=== PATIENT | male | born 2000 | race Hispanic/Latino ===

== ENCOUNTER 2020-04-06 15:42 | Inpatient (IN) | payer OTHER ==
[2020-04-06] MEDS ORDERED: EPINEPHrine 1 MG/10 ML Abboject SYRINGE ONE (15:48)
[2020-04-06] MEDS ORDERED: Sodium Bicarb 50 MEQ/50 ML Abboject 8.4% SYRINGE ONE ×4 (15:51→16:25)
[2020-04-06] MEDS ORDERED: Sodium Bicarb 50 MEQ/50 ML VIAL ONE (15:52)
[2020-04-06 15:58] LABS: Hemoglobin 14.2 g/dL (14.0-18.0); Mean Corpuscular HGB CONC 32.4 g/dL (32.0-36.0); Mean Corpuscular Hemoglobin 31.9 pg (27.0-31.0); Mean Corpuscular Volume 98.3 fL (78.0-98.0); Mean Platelet Volume 7.9 fL (7.4-10.4); Platelet Count 232 thou/uL (130-400); RBC Distribution Width 11.3 % (11.5-14.5); Red Blood Cell (RBC) Count 4.45 mill/uL (4.70-6.10)
[2020-04-06] MEDS ORDERED: Calcium Chloride 1 GM/10 ML Abboject SYRINGE ONE ×2 (16:01→16:21)
[2020-04-06 16:03] LABS: INR-International Normal Ratio 1.7; Prothrombin Time 20.8 sec (12.0-14.7)
[2020-04-06 16:04] LABS: PTT 78.7 sec (22.9-36.1)
[2020-04-06 16:05] LABS: Actual Bicarbonate (HCO3a) 7.3 mEq/L (22-28); Base Excess (BEa) -27.5 mEq/L (-2.0 to +3.0); CO2 Tension 47.7 mmHg (35.0-45.0); O2 Tension (PaO2), arterial 530.2 mmHg (80.0-100.0)
[2020-04-06 16:06] LABS: Carboxyhemoglobin (COHb) 0.3 gm% (0.0-3.0); Hemoglobin (Hb) 14.5 g/dL (14.0-18.0)
[2020-04-06 16:07] LABS: ALV-art Gradient 123.175 mmHg (0-20); Analyzer IN Cardio ER; Calcium, Ionized (arterial) 1.22 mmol/L (1.12-1.30); Potassium - ABG Lab 4.88 mmol/L (3.70-5.30); Puncture Site RRA
[2020-04-06 16:11] LABS: ALT (SGPT) 1464 U/L (8-55); AST (SGOT) 980 U/L (5-34); Albumin 3.7 g/dL (3.5-5.0); Alkaline Phosphatase 115 U/L (40-110); Anion Gap 27 mmol/L (10-20); BUN (Urea Nitrogen) 12 mg/dL (8.9-20.6); Bilirubin, Total 0.3 mg/dL (0.2-1.2); Calc. Creatinine Clearance 0 mL/min (70-130); Carbon Dioxide 11 mmol/L (22-29); Chloride 106 mmol/L (98-107); Estimated GFR-MDRD 47; Globulin 2.4 g/dL (2.4-3.5); Glucose 391 mg/dL (70-105); Potassium 4.9 mmol/L (3.5-5.1); Protein, Total 6.1 g/dL (6.0-8.3); Sodium 139 mmol/L (136-145)
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
[2020-04-06 16:15] LABS: Band 41 % (5-11); Eosinophils 1 % (0-10); Lymphocytes 19 % (21-51); MDiff Complete? YES; Monocytes 7 % (0-10); Neutrophil 29 % (42-75); Platelet Morphology Comment Appears Adequate; Polychromasia SLIGHT = 2-3 cells (100X) (0-2/hpf); Reactive Lymphocytes 3 % (0-10)
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
[2020-04-06 16:51] LABS: Actual Bicarbonate (HCO3a) 9.9 mEq/L (22-28); Base Excess (BEa) -19.5 mEq/L (-2.0 to +3.0); CO2 Tension 36.6 mmHg (35.0-45.0); O2 Tension (PaO2), arterial 283.6 mmHg (80.0-100.0); pH, Arterial 7.05 (7.35-7.45)
[2020-04-06 16:52] LABS: Analyzer IN Cardio ER; Calcium, Ionized (arterial) 1.08 mmol/L (1.12-1.30); Carboxyhemoglobin (COHb) 0.1 gm% (0.0-3.0); Hemoglobin (Hb) 10.5 g/dL (14.0-18.0); Potassium - ABG Lab 4.43 mmol/L (3.70-5.30); Puncture Site ART LINE
[2020-04-06 17:04] LABS: CKMB 20.8 ng/mL (0-6.6)
[2020-04-06 17:15] LABS: Bilirubin Negative (Negative); Blood, Urine 3+ (Negative); Clarity Turbid (Clear); Glucose, Urine (Dipstick) 300 mg/dL (Negative); Ketone, Urine Negative (Negative); Leukocyte 25 Leu/uL (Negative); Nitrite Negative (Negative); Protein, Urine (Dipstick) 300 mg/dL (Neg-Trace); Specific Gravity, Urine 1.021 (1.002-1.036); Squamous Epithelial None Seen HPF (0-3); Urobilinogen Normal mg/dL (Less than 2); WBC/HPF Greater than 50 HPF (0-3)
[2020-04-06 17:21] LABS: Amphetamine Not Detected (NotDetected); Barbiturates Screen Not Detected (NotDetected); Benzodiazepine Screen Not Detected (NotDetected); Cocaine Metabolite Screen Not Detected (NotDetected); Medtox Control Line Valid? VALID (VALID); Medtox Reader # READER 4; Methadone Not Detected (NotDetected); Methamphetamine Not Detected (NotDetected); Opiate Screen Not Detected (NotDetected); Oxycodone Screen Not Detected (NotDetected); Phencyclidine (PCP) Not Detected (NotDetected); THC/Cannabinoid Screen Not Detected (NotDetected); Tricyclic Screen Not Detected (NotDetected)
[2020-04-06] MEDS ORDERED: Dextrose 5% in Water 1,000 ML IV PRN (17:25)
[2020-04-06] MEDS ORDERED: Ondansetron PF 4 MG/2 ML Vial IVP PRN (17:25)
[2020-04-06] MEDS ORDERED: HumaLOG 300 UNITS/3 ML VIAL SC PRN (17:25)
[2020-04-06] MEDS ORDERED: Dextrose 50% Abboject 50 ML SYRINGE SLOW IVP PRN (17:25)
[2020-04-06 17:32] LABS: Bacteria/HPF 2+ HPF (None Seen); Sperm/HPF 2+ HPF (None Seen)
[2020-04-06 18:20] LABS: Actual Bicarbonate (HCO3a) 14.1 mEq/L (22-28); Base Excess (BEa) -11.1 mEq/L (-2.0 to +3.0); CO2 Tension 30.8 mmHg (35.0-45.0); Calcium, Ionized (arterial) 1.26 mmol/L (1.12-1.30); Carboxyhemoglobin (COHb) 0.3 gm% (0.0-3.0); Hemoglobin (Hb) 16.5 g/dL (14.0-18.0); O2 Tension (PaO2), arterial 95.6 mmHg (80.0-100.0); Potassium - ABG Lab 3.99 mmol/L (3.70-5.30); pH, Arterial 7.28 (7.35-7.45)
[2020-04-06 18:21] LABS: Puncture Site A-LINE
[2020-04-06 18:29] VITALS: BMI 22.9
[2020-04-06] MEDS: cefTRIAXone\\ROCEPHIN 1 GM in Sodium Chloride 0.9% 100 ML IVPB SCH (18:55)
[2020-04-06] MEDS ORDERED: Levothyroxine Sodium 400 MCG in Sodium Chloride 0.9% 100 ML IVPB PRN (19:14)
[2020-04-06] MEDS ORDERED: Vasopressin 20 UNIT, Admixture Fee 1 EACH in Sodium Chloride 0.9% 50 ML IV SCH (19:15)
[2020-04-06] MEDS ORDERED: Sodium Chloride 0.9% (PF) 10 ML VIAL FS PRN (19:15)
[2020-04-06] MEDS ORDERED: Hydrocortisone Sod Succ/PF 100 mg/2 ml Vial IVP SCH (19:15)
[2020-04-06] MEDS: Pantoprazole 40 MG VIAL IVP SCH (19:30)
[2020-04-06] MEDS: Norepinephrine 8 MG/0.9% NS 250 ML IVPB SCH (19:38)
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
[2020-04-06] MEDS ORDERED: Famotidine/PF 20 mg/2ml Vial SLOW IVP SCH (21:00)
[2020-04-06] MEDS ORDERED: Dextrose 50% Abboject 50 ML SYRINGE ONE ×3 (21:11→22:39)
[2020-04-06 21:37] LABS: Magnesium 3.4 mg/dL (1.6-2.6); Phosphorus 3.8 mg/dL (2.3-4.7)
[2020-04-06 21:41] LABS: Hemoglobin 17.7 g/dL (14.0-18.0); Lactic Acid 4.1 mmol/L (0.5-2.2)
[2020-04-06] MEDS ORDERED: Sodium Chloride 0.9% 1,000 ML IV SCH (21:45)
[2020-04-06] MEDS ORDERED: Dextrose 5 % And 0.9 % NaCl 1,000 ML IV SCH (22:45)
[2020-04-07 04:16] LABS: Phosphorus 3.7 mg/dL (2.3-4.7)
[2020-04-07 04:20] LABS: Anion Gap 17 mmol/L (10-20); BUN (Urea Nitrogen) 20 mg/dL (8.9-20.6); Calc. Creatinine Clearance 57 mL/min (70-130); Calcium 8.4 mg/dL (7.8-10.44); Carbon Dioxide 19 mmol/L (22-29); Chloride 116 mmol/L (98-107); Estimated GFR-MDRD 46; Glucose 120 mg/dL (70-105); Magnesium 2.8 mg/dL (1.6-2.6); Potassium 4.1 mmol/L (3.5-5.1); Sodium 148 mmol/L (136-145)
[2020-04-07] MEDS: Hydrocortisone Sod Succ/PF 100 mg/2 ml Vial IVP SCH ×2 (04:44→18:04)
[2020-04-07] MEDS: Norepinephrine 8 MG/0.9% NS 250 ML IVPB SCH ×2 (04:44→18:25)
[2020-04-07 04:50] LABS: Band 38 % (5-11); Hemoglobin 17.8 g/dL (14.0-18.0); Lymphocytes 11 % (21-51); MDiff Complete? YES; Mean Corpuscular HGB CONC 34.4 g/dL (32.0-36.0); Mean Corpuscular Hemoglobin 32.6 pg (27.0-31.0); Mean Corpuscular Volume 94.7 fL (78.0-98.0); Mean Platelet Volume 7.6 fL (7.4-10.4); Metamyelocyte 2 % (0-0); Monocytes 1 % (0-10); Neutrophil 48 % (42-75); Platelet Count 248 thou/uL (130-400); RBC Distribution Width 11.9 % (11.5-14.5); Red Blood Cell (RBC) Count 5.46 mill/uL (4.70-6.10); White Blood Cell (WBC) Count 19.6 thou/uL (4.8-10.8)
[2020-04-07] MEDS: Lactated Ringer's 1,000 ML IV SCH ×2 (04:50→13:03)
[2020-04-07] MEDS ORDERED: Magnesium Sulfate 3 GM in Sodium Chloride 0.9% 250 ML 250 ML IVPB SCH (05:00)
[2020-04-07] MEDS: Pantoprazole 40 MG VIAL IVP SCH (07:33)
[2020-04-07 07:45] LABS: Actual Bicarbonate (HCO3a) 17.7 mEq/L (22-28); Base Excess (BEa) -7.4 mEq/L (-2.0 to +3.0); CO2 Tension 35.3 mmHg (35.0-45.0); Calcium, Ionized (arterial) 1.21 mmol/L (1.12-1.30); Carboxyhemoglobin (COHb) 0.3 gm% (0.0-3.0); Hemoglobin (Hb) 17.8 g/dL (14.0-18.0); O2 Tension (PaO2), arterial 194.2 mmHg (80.0-100.0); Potassium - ABG Lab 4.45 mmol/L (3.70-5.30); pH, Arterial 7.32 (7.35-7.45)
[2020-04-07 07:55] LABS: ALV-art Gradient 118.175 mmHg (0-20); Puncture Site ALINE
--- NOTE | 2020-04-07 07:55 | RAD ---
Portable frontal chest radiograph: 04/07/2020 COMPARISON: 04/06/2020 HISTORY: Intubated patient FINDINGS: Stable endotracheal tube and nasogastric tube. No pneumothorax, lobar consolidation, or osman eolar edema. Hazy new density is noted in the infrahilar region on the right/medial right lung base suggesting non specific mild developing airspace disease. This could be related to aspiration. IMPRESSION: Developing hazy right perihilar/right basilar airspace disease suspicious for aspiration/ developing infectious pneumonitis.
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
--- NOTE | 2020-04-07 12:45 | PRG ---
DATE OF SERVICE: 04/07/2020 SUBJECTIVE: Mr. Sam had his ventilator turned down to a rate of 6. He would not breathe or make any respiratory effort over that rate. OBJECTIVE: VITAL SIGNS: His blood pressure has been stable at 102/91; heart rate is 100; respiratory rate per mechanical ventilation, he is set at a rate of 18. LUNGS: Clear. HEART: Regular rhythm. ABDOMEN: Soft. EXTREMITIES: Unchanged. He still has C-collar in place. LABORATORY DATA: PH 7.32, CO2 of 35, PO2 of 194. IMPRESSION: Clinical brain . He was sent down for a nuclear brain perfusion study, had no flow, so he is to be pronounced by the Trauma Team. Alf guards were notified that he was highly likely that he would be declared brain today received this information I am told. CRITICAL CARE TIME: 30 minutes. Job ID: [id number]
[2020-04-07 12:50] LABS: SARS-CoV-2 MS2 Positive; SARS-CoV-2 N Gene Negative; SARS-CoV-2 S Gene Negative; SARS-CoV-2 by NAA Not Detected (NotDetected); SARS-CoV-2 orf1ab Negative
--- NOTE | 2020-04-07 14:32 | PRG ---
DATE OF SERVICE: 04/07/2020 SUBJECTIVE: Mr. Sam today is on the ventilator. He is unresponsive. His pupils are dilated and fixed. He has no response to pain. There is no gag reflex. There are no spontaneous respirations. He is on Levophed. OBJECTIVE: VITAL SIGNS: Blood pressure 102/91, heart rate 87. LUNGS: Clear to auscultation. CARDIAC: Regular rhythm without murmur or gallop. ABDOMEN: Soft. LABORATORY DATA: Blood gases this morning reveal a pH of 7.32, 35 pCO2, 194 PO2, 99% saturation. Hemoglobin 17, white count 19. Basic metabolic profile; sodium 148, chloride 116. BUN 20, creatinine 1.87. ASSESSMENT AND PLAN: The patient is clinically brain . By the time of this dictation, nuclear brain scan has been performed revealing complete absence of brain blood flow. This confirmed brain at the time of scan at 11:08. The patient pronounced . Family notified and present. Organ donation process initiated. Family is present and very agitated. Job ID: [id number]
[2020-04-07 16:28] VITALS: TEMP 97.7
[2020-04-07] MEDS: cefTRIAXone\\ROCEPHIN 1 GM in Sodium Chloride 0.9% 100 ML IVPB SCH (18:05)
[2020-04-07 19:03] VITALS: BP 127/89
== END 2020-04-07 11:08 | disposition expired | DRG 91 ==
LOC: EEVIPCON 15:42 → ERS 15:42 → CCU 17:47
PROVIDERS: ADMIT Specialist; ATTEND Specialist
PROC: 5A1945Z Respiratory Ventilation, 24-96 Consecutive Hours (ICD-10-PCS; principal; 2020-04-06)
DX: G93.1 Anoxic brain damage, not elsewhere classified (principal); R40.2313 Coma scale, best motor response, none, at hospital admission; R40.2113 Coma scale, eyes open, never, at hospital admission; R40.2213 Coma scale, best verbal response, none, at hospital admission; T71.164A Asphyxiation due to hanging, undetermined, initial encounter; E87.2 Acidosis; I95.9 Hypotension, unspecified; Z20.828 Contact with and (suspected) exposure to other viral communicable diseases; I46.8 Cardiac arrest due to other underlying condition
CPT/HCPCS: 36415; 36416; 36556; 36620; 51702; 70450; 70498; 71045; 78610; 80048; 80053; 80306; 81003; 81015; 82533; 82553; 82805; 83605; 83735; 84100; 84484; 85025; 85060; 85610; 85730; 86850; 86900; 86901; 87635; 94002; 94003; 94640; 96365; 96366; 96375; 96376; A9521; C9113; G0390; J0171; J0690; J0696; J1720; J3475; J3490; J7050; J7620; U0003

== ENCOUNTER 2020-04-07 11:08 | Day surgery (SDC) | payer OTHER ==
[2020-04-07] MEDS ORDERED: Levothyroxine Sodium 400 MCG in Sodium Chloride 0.9% 100 ML IVPB SCH (21:45)
[2020-04-07 21:47] VITALS: BMI 22.9
--- NOTE | 2020-04-07 21:51 | RAD ---
PORTABLE CHEST: 04/07/20 HISTORY: Donor patient evaluation. COMPARISON: 03/25/20 exam. Endotracheal and NG tubes remain in satisfactory position. Heart and mediastinal structures are withi n normal limits. The right basilar air space disease shows improvement as compared to the prior exami nation. IMPRESSION: 1. Some improvement to the right basilar air space changes as compared to the previous exam. 2. Endotracheal and NG tubes remain in satisfactory position. POS: MARIELA
[2020-04-07] MEDS: Levothyroxine Sodium 400 MCG, Admixture Fee 1 EACH in Sodium Chloride 0.9% 100 ML IVPB SCH (21:55)
[2020-04-07] MEDS: Phytonadione 10 MG in Sodium Chloride 0.9% 50 ML IVPB SCH (21:55)
[2020-04-07] MEDS ORDERED: Hydrocortisone Sod Succ/PF 300 MG in Sodium Chloride 0.9% 50 ML IVPB SCH (22:00)
[2020-04-07 22:01] LABS: Actual Bicarbonate (HCO3a) 16.9 mEq/L (22-28); Base Excess (BEa) -8.5 mEq/L (-2.0 to +3.0); CO2 Tension 35.3 mmHg (35.0-45.0); Calcium, Ionized (arterial) 1.13 mmol/L (1.12-1.30); Carboxyhemoglobin (COHb) 0.3 gm% (0.0-3.0); Hemoglobin (Hb) 16.7 g/dL (14.0-18.0); Potassium - ABG Lab 4.38 mmol/L (3.70-5.30)
[2020-04-07 22:03] LABS: O2 Tension (PaO2), arterial 517.4 mmHg (80.0-100.0)
[2020-04-07 22:04] LABS: Puncture Site A-LINE
[2020-04-07 22:05] LABS: ALV-art Gradient 151.475 mmHg (0-20)
[2020-04-07 22:13] LABS: INR-International Normal Ratio 2.9; PTT 41.4 sec (22.9-36.1)
[2020-04-07 22:20] LABS: Hemoglobin 16.6 g/dL (14.0-18.0); Mean Corpuscular HGB CONC 32.5 g/dL (32.0-36.0); Mean Corpuscular Hemoglobin 31.3 pg (27.0-31.0); Mean Corpuscular Volume 96.2 fL (78.0-98.0); Platelet Count 180 thou/uL (130-400); RBC Distribution Width 12.2 % (11.5-14.5); Red Blood Cell (RBC) Count 5.29 mill/uL (4.70-6.10); White Blood Cell (WBC) Count 16.1 thou/uL (4.8-10.8)
[2020-04-07 22:38] LABS: ALT (SGPT) 3100 U/L (8-55); AST (SGOT) Greater than 3500 U/L (5-34); Alkaline Phosphatase 78 U/L (40-110); Anion Gap 16 mmol/L (10-20); BUN (Urea Nitrogen) 35 mg/dL (8.9-20.6); Bilirubin, Total 0.6 mg/dL (0.2-1.2); Calc. Creatinine Clearance 50 mL/min (70-130); Calcium 7.9 mg/dL (7.8-10.44); Carbon Dioxide 19 mmol/L (22-29); Chloride 123 mmol/L (98-107); Estimated GFR-MDRD 39; Globulin 2.3 g/dL (2.4-3.5); Glucose 90 mg/dL (70-105); Phosphorus 5.5 mg/dL (2.3-4.7); Potassium 4.6 mmol/L (3.5-5.1); Protein, Total 5.3 g/dL (6.0-8.3); Sodium 153 mmol/L (136-145)
[2020-04-07 22:39] LABS: Band 51 % (5-11); Lymphocytes 2 % (21-51); MDiff Complete? YES; Monocytes 1 % (0-10); Neutrophil 46 % (42-75); Nucleated RBC 1 % (0); Platelet Morphology Comment Appears Adequate
[2020-04-07] MEDS ORDERED: Sodium Chloride 0.45% 1,000 ML IV SCH (23:15)
[2020-04-08] MEDS: Sodium Chloride 0.45% 1,000 ML IV SCH ×3 (01:20→17:22)
[2020-04-08] MEDS: Phytonadione 10 MG in Sodium Chloride 0.9% 50 ML IVPB SCH (01:50)
[2020-04-08 01:53] LABS: INR-International Normal Ratio 3.2; Prothrombin Time 33.7 sec (12.0-14.7)
[2020-04-08 01:57] LABS: Hemoglobin 14.2 g/dL (14.0-18.0); Mean Corpuscular HGB CONC 33.2 g/dL (32.0-36.0); Mean Corpuscular Volume 96.1 fL (78.0-98.0); Mean Platelet Volume 8.6 fL (7.4-10.4); Platelet Count 143 thou/uL (130-400); Red Blood Cell (RBC) Count 4.43 mill/uL (4.70-6.10); White Blood Cell (WBC) Count 16.6 thou/uL (4.8-10.8)
[2020-04-08 01:58] LABS: Band 46 % (5-11); Lymphocytes 3 % (21-51); MDiff Complete? YES; Monocytes 1 % (0-10); Neutrophil 50 % (42-75); Platelet Morphology Comment Appears Adequate
[2020-04-08] MEDS: Piperacillin/Tazobactam 3.375 GM in Sodium Chloride 0.9% 100 ML IVPB SCH ×4 (02:24→20:30)
[2020-04-08 02:32] LABS: ALT (SGPT) 2801 U/L (8-55); Albumin 3.2 g/dL (3.5-5.0); Alkaline Phosphatase 64 U/L (40-110); Anion Gap 19 mmol/L (10-20); BUN (Urea Nitrogen) 36 mg/dL (8.9-20.6); Bilirubin, Total 0.6 mg/dL (0.2-1.2); Calc. Creatinine Clearance 47 mL/min (70-130); Calcium 7.6 mg/dL (7.8-10.44); Carbon Dioxide 14 mmol/L (22-29); Chloride 122 mmol/L (98-107); Estimated GFR-MDRD 37; Globulin 1.9 g/dL (2.4-3.5); Glucose 101 mg/dL (70-105); Magnesium 2.7 mg/dL (1.6-2.6); Phosphorus 5.4 mg/dL (2.3-4.7); Potassium 4.9 mmol/L (3.5-5.1); Protein, Total 5.1 g/dL (6.0-8.3); Sodium 150 mmol/L (136-145)
[2020-04-08 03:00] LABS: AST (SGOT) Greater than 3500 U/L (5-34)
[2020-04-08 04:15] LABS: Actual Bicarbonate (HCO3a) 17.7 mEq/L (22-28); Base Excess (BEa) -7.8 mEq/L (-2.0 to +3.0); CO2 Tension 35.8 mmHg (35.0-45.0); Calcium, Ionized (arterial) 1.09 mmol/L (1.12-1.30); Carboxyhemoglobin (COHb) 0.3 gm% (0.0-3.0); Potassium - ABG Lab 4.71 mmol/L (3.70-5.30); pH, Arterial 7.31 (7.35-7.45)
[2020-04-08 04:16] LABS: Hemoglobin A1c 5.3 % (4.0-6.0)
[2020-04-08 04:19] LABS: O2 Tension (PaO2), arterial 628.6 mmHg (80.0-100.0); Puncture Site RRA
[2020-04-08] MEDS: Albuterol Sulfate 2.5 mg/3 ml Neb NEB SCH ×6 (04:21→21:56)
[2020-04-08 04:26] LABS: Gamma GT (GGT) 38 U/L (12-64); Lipase 224 U/L (8-78)
[2020-04-08 04:35] LABS: Troponin I 4.361 ng/mL (< 0.028)
[2020-04-08 05:30] LABS: CK (CPK) Greater than 40000 U/L (30-200)
[2020-04-08 06:18] LABS: Bilirubin Negative (Negative); Blood, Urine 3+ (Negative); Clarity Turbid (Clear); Glucose, Urine (Dipstick) Normal (Negative); Ketone, Urine Negative (Negative); Leukocyte 75 Leu/uL (Negative); Nitrite Negative (Negative); Protein, Urine (Dipstick) 70 mg/dL (Neg-Trace); RBC/HPF 0-3 HPF (0-3); Specific Gravity, Urine 1.008 (1.002-1.036); Squamous Epithelial 0-3 HPF (0-3); Urobilinogen Normal mg/dL (Less than 2)
[2020-04-08 06:20] LABS: Bacteria/HPF 1+ HPF (None Seen)
[2020-04-08] MEDS: Hydrocortisone Sod Succ/PF 100 mg/2 ml Vial IVP SCH ×3 (06:38→21:25)
[2020-04-08] MEDS ORDERED: Sodium Chloride 0.45% 1,000 ML IV SCH (06:45)
[2020-04-08] MEDS ORDERED: Lactated Ringer's 1,000 ML IV SCH (06:45)
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
[2020-04-08 10:15] LABS: INR-International Normal Ratio 2.4; Prothrombin Time 26.8 sec (12.0-14.7)
[2020-04-08 10:18] LABS: ALT (SGPT) 3164 U/L (8-55); Alkaline Phosphatase 63 U/L (40-110); Anion Gap 17 mmol/L (10-20); BUN (Urea Nitrogen) 39 mg/dL (8.9-20.6); Bilirubin, Total 0.5 mg/dL (0.2-1.2); Calc. Creatinine Clearance 45 mL/min (70-130); Calcium 7.9 mg/dL (7.8-10.44); Carbon Dioxide 18 mmol/L (22-29); Chloride 121 mmol/L (98-107); Estimated GFR-MDRD 34; Globulin 1.9 g/dL (2.4-3.5); Glucose 111 mg/dL (70-105); Hemoglobin 11.7 g/dL (14.0-18.0); Magnesium 2.4 mg/dL (1.6-2.6); Mean Corpuscular HGB CONC 32.2 g/dL (32.0-36.0); Mean Corpuscular Hemoglobin 31.7 pg (27.0-31.0); Mean Corpuscular Volume 98.3 fL (78.0-98.0); Mean Platelet Volume 8.4 fL (7.4-10.4); Phosphorus 4.6 mg/dL (2.3-4.7); Platelet Count 112 thou/uL (130-400); Potassium 4.5 mmol/L (3.5-5.1); Protein, Total 4.9 g/dL (6.0-8.3); RBC Distribution Width 12.2 % (11.5-14.5); Sodium 151 mmol/L (136-145); White Blood Cell (WBC) Count 15.7 thou/uL (4.8-10.8)
[2020-04-08 10:19] LABS: Band 39 % (5-11); Burr Cells SLIGHT = 2-5 cells (100X) (0-1/hpf); Critical Call Chem Troponin I RESULT DECREASING; Lymphocytes 1 % (21-51); MDiff Complete? YES; Metamyelocyte 2 % (0-0); Monocytes 1 % (0-10); Neutrophil 57 % (42-75); Platelet Morphology Comment Appears Decreased; Polychromasia SLIGHT = 2-3 cells (100X) (0-2/hpf); Troponin I 4.006 ng/mL (< 0.028)
[2020-04-08 10:20] LABS: Bilirubin Negative (Negative); Blood, Urine 3+ (Negative); Clarity Turbid (Clear); Glucose, Urine (Dipstick) Normal (Negative); Ketone, Urine Negative (Negative); Leukocyte 25 Leu/uL (Negative); Nitrite Negative (Negative); Protein, Urine (Dipstick) 70 mg/dL (Neg-Trace); Squamous Epithelial None Seen HPF (0-3); Urobilinogen Normal mg/dL (Less than 2); pH, Urine 5.5 (5.0-9.0)
[2020-04-08 10:20] LABS: AST (SGOT) Greater than 3500 U/L (5-34)
[2020-04-08 10:28] LABS: Bacteria/HPF Rare-Few HPF (None Seen)
[2020-04-08 10:50] LABS: CK (CPK) Greater than 40000 U/L (30-200)
[2020-04-08] MEDS: Levothyroxine Sodium 400 MCG, Admixture Fee 1 EACH in Sodium Chloride 0.9% 100 ML IVPB SCH (11:25)
--- NOTE | 2020-04-08 11:44 | RAD ---
PORTABLE CHEST: INDICATION: Donor patient. COMPARISON: 04/08/2020. FINDINGS: ET tube, NG tube remain in place. The lung toro appear clear. Heart and mediastinum unremarkable. IMPRESSION: No acute finding. POS: AGW
[2020-04-08 15:34] LABS: Hemoglobin 11.4 g/dL (14.0-18.0); Mean Corpuscular HGB CONC 33.5 g/dL (32.0-36.0); Mean Corpuscular Hemoglobin 32.6 pg (27.0-31.0); Mean Corpuscular Volume 97.1 fL (78.0-98.0); Mean Platelet Volume 8.6 fL (7.4-10.4); Platelet Count 101 thou/uL (130-400); Red Blood Cell (RBC) Count 3.49 mill/uL (4.70-6.10); White Blood Cell (WBC) Count 13.6 thou/uL (4.8-10.8)
[2020-04-08 15:40] LABS: INR-International Normal Ratio 2.4; PTT 43.2 sec (22.9-36.1); Prothrombin Time 26.6 sec (12.0-14.7)
--- NOTE | 2020-04-08 15:40 | RAD ---
XR Chest 1 View Portable HISTORY: Donor patient COMPARISON: Earlier exam of 10:28 AM from same date FINDINGS: ET tube, NG tube remain in place. The lung toro appear clear. Heart and mediastinum are u nremarkable. IMPRESSION: Stable exam
[2020-04-08 15:55] LABS: Band 42 % (5-11); Burr Cells SLIGHT = 2-5 cells (100X) (0-1/hpf); Lymphocytes 3 % (21-51); MDiff Complete? YES; Metamyelocyte 3 % (0-0); Monocytes 1 % (0-10); Neutrophil 51 % (42-75); Ovalocytes SLIGHT = 2-5 cells (100X) (0-1/hpf); Platelet Morphology Comment Appears Decreased; Polychromasia SLIGHT = 2-3 cells (100X) (0-2/hpf); Vacuoles SLIGHT
--- NOTE | 2020-04-08 16:24 | CT ---
CT Chest Abd Pelvis WO Con History: Organ donor evaluation Comparison: None. Findings: Mild patchy groundglass opacities in the lower lobe suggesting neurogenic edema. No pneumot horax. No effusion. Degenerative tip above the jazzy. Enteric tube tip at the gastric body. No pneumothorax. No pleural effusion. No significant pericardial fluid. Two separate right femoral lines are present, one in the femoral artery and one in the femoral vein w ith the arterial line terminating at the external iliac artery and the venous line terminating at the common iliac vein. Mild third spacing of fluid. No hydronephrosis. Mild colonic wall edema. No dilated loops of large or small bowel. No hydronephrosis. Impression: Evaluation for organ procurement. Low-grade neurogenic pulmonary edema.
[2020-04-08 16:33] LABS: Critical Call Chem Troponin I RESULT DECREASING
[2020-04-08 16:56] LABS: ALT (SGPT) 3521 U/L (8-55); AST (SGOT) Greater than 3500 U/L (5-34); Alkaline Phosphatase 70 U/L (40-110); Anion Gap 19 mmol/L (10-20); BUN (Urea Nitrogen) 43 mg/dL (8.9-20.6); Bilirubin, Total 0.7 mg/dL (0.2-1.2); CK (CPK) Greater than 40000 U/L (30-200); Calc. Creatinine Clearance 40 mL/min (70-130); Calcium 7.9 mg/dL (7.8-10.44); Carbon Dioxide 17 mmol/L (22-29); Chloride 119 mmol/L (98-107); Estimated GFR-MDRD 30; Glucose 125 mg/dL (70-105); Lipase 145 U/L (8-78); Magnesium 2.4 mg/dL (1.6-2.6); Potassium 4.6 mmol/L (3.5-5.1); Sodium 150 mmol/L (136-145)
[2020-04-08] MEDS: Sodium Bicarbonate 150 MEQ in Dextrose 5% in Water 1,000 ML IV SCH (17:23)
[2020-04-08 17:34] LABS: Actual Bicarbonate (HCO3a) 18.6 mEq/L (22-28); Base Excess (BEa) -7.1 mEq/L (-2.0 to +3.0); CO2 Tension 37.9 mmHg (35.0-45.0); Calcium, Ionized (arterial) 1.03 mmol/L (1.12-1.30); Carboxyhemoglobin (COHb) 0.3 gm% (0.0-3.0); Hemoglobin (Hb) 11.4 g/dL (14.0-18.0); O2 Tension (PaO2), arterial 397.7 mmHg (80.0-100.0); Potassium - ABG Lab 4.29 mmol/L (3.70-5.30); pH, Arterial 7.31 (7.35-7.45)
[2020-04-08 17:35] LABS: Puncture Site ALINE
[2020-04-08 17:36] LABS: ALV-art Gradient 267.925 mmHg (0-20)
[2020-04-08 18:07] LABS: Acetaminophen Less than 6.0 mcg/mL (10.0-30.0)
[2020-04-08 18:12] LABS: Actual Bicarbonate (HCO3a) 19.2 mEq/L (22-28); Base Excess (BEa) -5.6 mEq/L (-2.0 to +3.0); CO2 Tension 34.9 mmHg (35.0-45.0); Calcium, Ionized (arterial) 0.98 mmol/L (1.12-1.30); Carboxyhemoglobin (COHb) 0.2 gm% (0.0-3.0); Hemoglobin (Hb) 10.9 g/dL (14.0-18.0); Potassium - ABG Lab 4.23 mmol/L (3.70-5.30); pH, Arterial 7.36 (7.35-7.45)
[2020-04-08 18:15] LABS: O2 Tension (PaO2), arterial 530.9 mmHg (80.0-100.0); Puncture Site ALINE
[2020-04-08 18:16] LABS: ALV-art Gradient 138.475 mmHg (0-20)
[2020-04-08 21:50] LABS: Hemoglobin 10.5 g/dL (14.0-18.0); Mean Corpuscular HGB CONC 32.6 g/dL (32.0-36.0); Mean Corpuscular Hemoglobin 31.8 pg (27.0-31.0); Mean Corpuscular Volume 97.6 fL (78.0-98.0); Mean Platelet Volume 8.4 fL (7.4-10.4); Platelet Count 83 thou/uL (130-400); RBC Distribution Width 12.1 % (11.5-14.5); Red Blood Cell (RBC) Count 3.31 mill/uL (4.70-6.10); White Blood Cell (WBC) Count 11.1 thou/uL (4.8-10.8)
[2020-04-08 21:53] LABS: Bilirubin Negative (Negative); Blood, Urine Large (Negative); Clarity Cloudy (Clear); Glucose, Urine (Dipstick) Negative (Negative); Ketone, Urine Negative (Negative); Leukocyte Moderate (Negative); Nitrite Negative (Negative); Protein, Urine (Dipstick) 100 mg/dL (Neg-Trace); Renal Epithelial 0-3 HPF (None Seen); Squamous Epithelial None Seen HPF (0-3); Urobilinogen 0.2 mg/dL (Less than 2); WBC/HPF Greater than 50 HPF (0-3); pH, Urine 5.5 (5.0-9.0)
[2020-04-08 21:54] LABS: INR-International Normal Ratio 2.1; Prothrombin Time 23.7 sec (12.0-14.7)
[2020-04-08 21:55] LABS: PTT 41.2 sec (22.9-36.1)
[2020-04-08 22:05] LABS: Bacteria/HPF 2+ HPF (None Seen)
[2020-04-08 22:06] LABS: Other Microscopic Description Less than 2 mL rec'd
[2020-04-08 22:07] LABS: Band 38 % (5-11); Eosinophils 2 % (0-10); Hypochromia SLIGHT = 6-15 cells (100X) (0-5/hpf); Lymphocytes 4 % (21-51); MDiff Complete? YES; Metamyelocyte 1 % (0-0); Monocytes 3 % (0-10); Neutrophil 52 % (42-75); Platelet Morphology Comment Appears Decreased
--- NOTE | 2020-04-08 22:15 | RAD ---
Chest one view HISTORY: Evaluate for organ donation. COMPARISON: 04/08/2020. FINDINGS: Lines and tubes are unchanged in position. No evidence of pneumothorax or other new abnorma lity. No pleural fluid. Cardiac silhouette, pulmonary vasculature are unremarkable. Length of right lun.1 cm. Length of left lun.9 cm Total lung width at aortic knob 24.7 cm Total lung width at the diaphragm apex 26.1 cm Total lung width at lateral costophrenic angles 29.3 cm. IMPRESSION : No active cardiopulmonary abnormalities are demonstrated. Lung measurements as detailed above.
[2020-04-08 22:39] LABS: Actual Bicarbonate (HCO3a) 20.4 mEq/L (22-28); Base Excess (BEa) -4.6 mEq/L (-2.0 to +3.0); CO2 Tension 37.2 mmHg (35.0-45.0); Calcium, Ionized (arterial) 1.02 mmol/L (1.12-1.30); Carboxyhemoglobin (COHb) 0.2 gm% (0.0-3.0); Hemoglobin (Hb) 10.6 g/dL (14.0-18.0); O2 Tension (PaO2), arterial 498.2 mmHg (80.0-100.0); pH, Arterial 7.36 (7.35-7.45)
[2020-04-08 22:41] LABS: Puncture Site ALINE
[2020-04-08 22:50] LABS: Critical Call Chem Troponin I RESULT DECREASING; Troponin I 2.946 ng/mL (< 0.028)
[2020-04-08 22:52] LABS: ALT (SGPT) 3439 U/L (8-55); AST (SGOT) Greater than 3500 U/L (5-34); Albumin 3.1 g/dL (3.5-5.0); Alkaline Phosphatase 84 U/L (40-110); Anion Gap 14 mmol/L (10-20); BUN (Urea Nitrogen) 46 mg/dL (8.9-20.6); Bilirubin, Total 0.9 mg/dL (0.2-1.2); CK (CPK) Greater than 40000 U/L (30-200); Calc. Creatinine Clearance 36 mL/min (70-130); Calcium 7.6 mg/dL (7.8-10.44); Carbon Dioxide 21 mmol/L (22-29); Chloride 120 mmol/L (98-107); Estimated GFR-MDRD 27; Glucose 151 mg/dL (70-105); Magnesium 2.4 mg/dL (1.6-2.6); Phosphorus 3.8 mg/dL (2.3-4.7); Potassium 4.1 mmol/L (3.5-5.1); Protein, Total 5.1 g/dL (6.0-8.3); Sodium 151 mmol/L (136-145)
[2020-04-08] MEDS ORDERED: Albumin 25% 25 GM/100 ML BOT IVPB SCH (23:30)
[2020-04-09 00:38] LABS: Lactic Acid 4.1 mmol/L (0.5-2.2)
[2020-04-09 02:08] LABS: Actual Bicarbonate (HCO3a) 22.8 mEq/L (22-28); Base Excess (BEa) -1.9 mEq/L (-2.0 to +3.0); CO2 Tension 38.3 mmHg (35.0-45.0); Calcium, Ionized (arterial) 1.07 mmol/L (1.12-1.30); Carboxyhemoglobin (COHb) 0.2 gm% (0.0-3.0); Hemoglobin (Hb) 10.8 g/dL (14.0-18.0); Potassium - ABG Lab 3.76 mmol/L (3.70-5.30); pH, Arterial 7.39 (7.35-7.45)
[2020-04-09 02:10] LABS: ALV-art Gradient 152.625 mmHg (0-20); O2 Tension (PaO2), arterial 512.5 mmHg (80.0-100.0); Puncture Site A-LINE
[2020-04-09] MEDS: Albuterol Sulfate 2.5 mg/3 ml Neb NEB SCH ×6 (02:11→22:14)
[2020-04-09] MEDS: Piperacillin/Tazobactam 3.375 GM in Sodium Chloride 0.9% 100 ML IVPB SCH ×4 (03:13→19:49)
[2020-04-09] MEDS: Sodium Bicarbonate 150 MEQ in Dextrose 5% in Water 1,000 ML IV SCH (03:13)
[2020-04-09 03:52] LABS: INR-International Normal Ratio 2.2; PTT 43.2 sec (22.9-36.1); Prothrombin Time 24.8 sec (12.0-14.7)
[2020-04-09 04:05] LABS: ALT (SGPT) 3663 U/L (8-55); Albumin 3.5 g/dL (3.5-5.0); Alkaline Phosphatase 80 U/L (40-110); Anion Gap 17 mmol/L (10-20); BUN (Urea Nitrogen) 48 mg/dL (8.9-20.6); Bilirubin, Total 1.2 mg/dL (0.2-1.2); Calc. Creatinine Clearance 33 mL/min (70-130); Calcium 7.8 mg/dL (7.8-10.44); Carbon Dioxide 23 mmol/L (22-29); Chloride 116 mmol/L (98-107); Estimated GFR-MDRD 24; Glucose 186 mg/dL (70-105); Lipase 613 U/L (8-78); Magnesium 2.4 mg/dL (1.6-2.6); Phosphorus 3.8 mg/dL (2.3-4.7); Potassium 3.5 mmol/L (3.5-5.1); Protein, Total 5.5 g/dL (6.0-8.3); Sodium 152 mmol/L (136-145)
[2020-04-09 04:06] LABS: #Lymphocytes 0.4 thou/uL (1.20-3.40); #Monocytes 0.2 thou/uL (0.11-0.59); #Neutrophils 11.9 thou/uL (1.40-6.50); %Eosinophils 0.1 % (0.0-10.0); %Lymphocytes 2.8 % (21.0-51.0); %Monocytes 1.3 % (0.0-10.0); %Neutrophils 95.9 % (42.0-75.0); AST (SGOT) Greater than 3500 U/L (5-34); Hemoglobin 10.1 g/dL (14.0-18.0); Mean Corpuscular HGB CONC 34.2 g/dL (32.0-36.0); Mean Corpuscular Hemoglobin 32.6 pg (27.0-31.0); Mean Corpuscular Volume 95.4 fL (78.0-98.0); Mean Platelet Volume 8.8 fL (7.4-10.4); Platelet Count 70 thou/uL (130-400); White Blood Cell (WBC) Count 12.4 thou/uL (4.8-10.8)
[2020-04-09 04:14] LABS: Critical Call Chem Troponin I RESULT DECREASING; Troponin I 2.705 ng/mL (< 0.028)
[2020-04-09 05:25] LABS: CK (CPK) Greater than 40000 U/L (30-200)
[2020-04-09] MEDS ORDERED: Potassium Chloride 20 MEQ in Premix Bag 1 BAG IVPB SCH (06:15)
[2020-04-09 06:16] LABS: Bilirubin Negative (Negative); Blood, Urine Large (Negative); Glucose, Urine (Dipstick) Negative (Negative); Ketone, Urine Negative (Negative); Leukocyte Trace (Negative); Nitrite Negative (Negative); Protein, Urine (Dipstick) 100 mg/dL (Neg-Trace); Urobilinogen 0.2 mg/dL (Less than 2); pH, Urine 5.5 (5.0-9.0)
[2020-04-09 06:17] LABS: Clarity Clear (Clear)
[2020-04-09] MEDS: Sodium Chloride 0.45% 1,000 ML IV SCH ×2 (06:18→17:41)
[2020-04-09] MEDS: Hydrocortisone Sod Succ/PF 100 mg/2 ml Vial IVP SCH ×3 (06:18→21:35)
[2020-04-09] MEDS ORDERED: Vancomycin HCl 1.25 GM in Sodium Chloride 0.9% 250 ML 250 ML IVPB SCH (06:30)
[2020-04-09 06:56] LABS: Actual Bicarbonate (HCO3a) 20.7 mEq/L (22-28); Base Excess (BEa) -2.4 mEq/L (-2.0 to +3.0); Calcium, Ionized (arterial) 1.11 mmol/L (1.12-1.30); Carboxyhemoglobin (COHb) 0.2 gm% (0.0-3.0); Hemoglobin (Hb) 10.4 g/dL (14.0-18.0); Potassium - ABG Lab 3.51 mmol/L (3.70-5.30); pH, Arterial 7.46 (7.35-7.45)
[2020-04-09 06:57] LABS: Puncture Site ALINE
--- NOTE | 2020-04-09 08:14 | RAD ---
PORTABLE CHEST: INDICATION: Donor patient. FINDINGS: Lungs are clear. ET tube and NG tube remain unchanged in position. No interval change. IMPRESSION: No acute finding. POS: AGW
[2020-04-09 08:21] LABS: Actual Bicarbonate (HCO3a) 24.3 mEq/L (22-28); Base Excess (BEa) 0.1 mEq/L (-2.0 to +3.0); CO2 Tension 37.9 mmHg (35.0-45.0); Calcium, Ionized (arterial) 1.09 mmol/L (1.12-1.30); Carboxyhemoglobin (COHb) 0.2 gm% (0.0-3.0); Hemoglobin (Hb) 10.9 g/dL (14.0-18.0); O2 Tension (PaO2), arterial 375.5 mmHg (80.0-100.0); Potassium - ABG Lab 3.56 mmol/L (3.70-5.30); pH, Arterial 7.43 (7.35-7.45)
[2020-04-09 08:22] LABS: ALV-art Gradient 290.125 mmHg (0-20); Puncture Site ALINE
[2020-04-09] MEDS ORDERED: Phytonadione 10 MG/ML AMP SLOW IVP SCH (08:45)
--- NOTE | 2020-04-09 09:03 | RAD ---
PORTABLE CHEST: INDICATION: Organ donor. FINDINGS: Lung toro remain clear. ET tube and NG Tube unchanged. No acute interval change. IMPRESSION: Stable chest. POS: AGW
[2020-04-09 09:43] LABS: Hemoglobin 10.6 g/dL (14.0-18.0); Mean Corpuscular HGB CONC 33.3 g/dL (32.0-36.0); Mean Corpuscular Volume 96.1 fL (78.0-98.0); Mean Platelet Volume 9.6 fL (7.4-10.4); Platelet Count 76 thou/uL (130-400); RBC Distribution Width 12.2 % (11.5-14.5); Red Blood Cell (RBC) Count 3.31 mill/uL (4.70-6.10); White Blood Cell (WBC) Count 12.8 thou/uL (4.8-10.8)
[2020-04-09 09:48] LABS: INR-International Normal Ratio 2.1; PTT 41.8 sec (22.9-36.1); Prothrombin Time 24.2 sec (12.0-14.7)
[2020-04-09 10:09] LABS: Band 14 % (5-11); Lymphocytes 2 % (21-51); MDiff Complete? YES; Monocytes 4 % (0-10); Neutrophil 80 % (42-75); Platelet Morphology Comment Appears Decreased
[2020-04-09 10:16] LABS: Critical Call Chem Troponin I RESULT DECREASING; Troponin I 2.591 ng/mL (< 0.028)
--- NOTE | 2020-04-09 10:21 | RAD ---
PORTABLE CHEST: INDICATION: Donor patient. COMPARISON: Film earlier this morning. FINDINGS: ET tube and NG tube unchanged. Lungs remain clear and unchanged. Heart and mediastinum appear carlito l and unchanged. IMPRESSION: Stable chest. No acute process. POS: AGW
[2020-04-09 10:25] LABS: AST (SGOT) Greater than 3500 U/L (5-34); Albumin 3.5 g/dL (3.5-5.0); Alkaline Phosphatase 89 U/L (40-110); Anion Gap 17 mmol/L (10-20); BUN (Urea Nitrogen) 47 mg/dL (8.9-20.6); Bilirubin, Total 1.2 mg/dL (0.2-1.2); Calc. Creatinine Clearance 32 mL/min (70-130); Calcium 8.3 mg/dL (7.8-10.44); Carbon Dioxide 25 mmol/L (22-29); Chloride 117 mmol/L (98-107); Estimated GFR-MDRD 23; Globulin 2.1 g/dL (2.4-3.5); Glucose 144 mg/dL (70-105); Magnesium 2.4 mg/dL (1.6-2.6); Phosphorus 4.7 mg/dL (2.3-4.7); Potassium 3.8 mmol/L (3.5-5.1); Protein, Total 5.6 g/dL (6.0-8.3); Sodium 155 mmol/L (136-145)
[2020-04-09 10:28] LABS: ALT (SGPT) 4236 U/L (8-55)
[2020-04-09 10:29] LABS: Bilirubin Negative (Negative); Blood, Urine 3+ (Negative); Clarity Extra Turbid (Clear); Glucose, Urine (Dipstick) Normal (Negative); Ketone, Urine Negative (Negative); Leukocyte 500 Leu/uL (Negative); Nitrite Negative (Negative); Protein, Urine (Dipstick) 50 mg/dL (Neg-Trace); Specific Gravity, Urine 1.009 (1.002-1.036); Urobilinogen Normal mg/dL (Less than 2); pH, Urine 5.5 (5.0-9.0)
[2020-04-09 10:35] LABS: Bacteria/HPF None Seen HPF (None Seen); Squamous Epithelial None Seen HPF (0-3); Transitional Epithelial 0-3 HPF (None Seen)
[2020-04-09 10:46] LABS: CK (CPK) Greater than 40000 U/L (30-200)
[2020-04-09] MEDS ORDERED: Furosemide 100 MG/10 ML VIAL SLOW IVP SCH (11:15)
[2020-04-09 12:37] LABS: INR-International Normal Ratio 2.1; PTT 41.8 sec (22.9-36.1); Prothrombin Time 24.2 sec (12.0-14.7)
[2020-04-09 12:44] LABS: Actual Bicarbonate (HCO3a) 22.2 mEq/L (22-28); Base Excess (BEa) -2.9 mEq/L (-2.0 to +3.0); CO2 Tension 39.3 mmHg (35.0-45.0); Carboxyhemoglobin (COHb) 0.3 gm% (0.0-3.0); Hemoglobin (Hb) 10.6 g/dL (14.0-18.0); O2 Tension (PaO2), arterial 483.4 mmHg (80.0-100.0); Potassium - ABG Lab 3.46 mmol/L (3.70-5.30); pH, Arterial 7.37 (7.35-7.45)
[2020-04-09 12:47] LABS: ALV-art Gradient 180.475 mmHg (0-20); Puncture Site ALINE
[2020-04-09 12:58] LABS: D-Dimer Test 18.68 *mcg/mL (0.27-0.43)
[2020-04-09] MEDS ORDERED: Mannitol 12.5 GM/50 ML IV SCH (14:00)
--- NOTE | 2020-04-09 15:53 | RAD ---
PORTABLE CHEST: 04/09/20 HISTORY: Donor evaluation. COMPARISON: Earlier today. Lungs remain clear. No infiltrate or effusion. Heart and mediastinum unremarkable. The ET tube and NG tube are unchanged. IMPRESSION: No acute process. POS: AGW
[2020-04-09 16:02] LABS: Hemoglobin 10.5 g/dL (14.0-18.0); Mean Corpuscular HGB CONC 34.7 g/dL (32.0-36.0); Mean Corpuscular Hemoglobin 32.9 pg (27.0-31.0); Mean Corpuscular Volume 94.9 fL (78.0-98.0); Mean Platelet Volume 9.1 fL (7.4-10.4); Platelet Count 82 thou/uL (130-400); RBC Distribution Width 12.1 % (11.5-14.5); White Blood Cell (WBC) Count 13.5 thou/uL (4.8-10.8)
[2020-04-09 16:08] LABS: INR-International Normal Ratio 1.7; Prothrombin Time 20.7 sec (12.0-14.7)
[2020-04-09 16:09] LABS: PTT 37.3 sec (22.9-36.1)
[2020-04-09 16:19] LABS: Albumin 3.6 g/dL (3.5-5.0); Alkaline Phosphatase 96 U/L (40-110); Anion Gap 19 mmol/L (10-20); BUN (Urea Nitrogen) 50 mg/dL (8.9-20.6); Calc. Creatinine Clearance 28 mL/min (70-130); Calcium 8.7 mg/dL (7.8-10.44); Carbon Dioxide 23 mmol/L (22-29); Chloride 116 mmol/L (98-107); Estimated GFR-MDRD 20; Globulin 2.3 g/dL (2.4-3.5); Glucose 159 mg/dL (70-105); Magnesium 2.4 mg/dL (1.6-2.6); Phosphorus 4.6 mg/dL (2.3-4.7); Potassium 3.4 mmol/L (3.5-5.1); Protein, Total 5.9 g/dL (6.0-8.3); Sodium 155 mmol/L (136-145)
[2020-04-09 16:20] LABS: Band 21 % (5-11); Lymphocytes 4 % (21-51); MDiff Complete? YES; Monocytes 1 % (0-10); Neutrophil 74 % (42-75); Platelet Morphology Comment Appears Decreased; Polychromasia SLIGHT = 2-3 cells (100X) (0-2/hpf)
[2020-04-09 16:27] LABS: Critical Call Chem Troponin I RESULT DECREASING; Troponin I 1.725 ng/mL (< 0.028)
[2020-04-09 16:47] LABS: ALT (SGPT) Greater than 3800 U/L (8-55); AST (SGOT) Greater than 3500 U/L (5-34)
[2020-04-09 16:48] LABS: CK (CPK) Greater than 40000 U/L (30-200); Lipase Greater than 1000 U/L (8-78)
[2020-04-09 17:38] LABS: Bacteria/HPF None Seen HPF (None Seen); Bilirubin Negative (Negative); Blood, Urine Negative (Negative); Clarity Clear (Clear); Glucose, Urine (Dipstick) Normal (Negative); Ketone, Urine Negative (Negative); Leukocyte Negative Leu/uL (Negative); Nitrite Negative (Negative); Protein, Urine (Dipstick) Negative (Neg-Trace); RBC/HPF 0-3 HPF (0-3); Specific Gravity, Urine 1.001 (1.002-1.036); Squamous Epithelial None Seen HPF (0-3); Urobilinogen Normal mg/dL (Less than 2); WBC/HPF None Seen HPF (0-3); pH, Urine 5.5 (5.0-9.0)
[2020-04-09] MEDS ORDERED: Potassium Chloride 40 MEQ in Premix Bag 1 BAG IVPB SCH (17:45)
[2020-04-09] MEDS ORDERED: niCARdipine 25 MG in Sodium Chloride 0.9% 250 ML 240 ML IVPB SCH (19:00)
[2020-04-09 19:07] LABS: Actual Bicarbonate (HCO3a) 23.3 mEq/L (22-28); Base Excess (BEa) -1.5 mEq/L (-2.0 to +3.0); CO2 Tension 39.7 mmHg (35.0-45.0); Calcium, Ionized (arterial) 1.14 mmol/L (1.12-1.30); Carboxyhemoglobin (COHb) 0.3 gm% (0.0-3.0); Hemoglobin (Hb) 11.1 g/dL (14.0-18.0); O2 Tension (PaO2), arterial 450.8 mmHg (80.0-100.0); pH, Arterial 7.39 (7.35-7.45)
[2020-04-09 19:08] LABS: Puncture Site A-LINE
[2020-04-09 19:09] LABS: ALV-art Gradient 212.575 mmHg (0-20)
[2020-04-09 21:37] LABS: Band 36 % (5-11); Hemoglobin 10.3 g/dL (14.0-18.0); Lymphocytes 3 % (21-51); MDiff Complete? YES; Mean Corpuscular HGB CONC 33.8 g/dL (32.0-36.0); Mean Corpuscular Hemoglobin 32.3 pg (27.0-31.0); Mean Corpuscular Volume 95.7 fL (78.0-98.0); Mean Platelet Volume 8.9 fL (7.4-10.4); Monocytes 2 % (0-10); Neutrophil 59 % (42-75); Platelet Count 75 thou/uL (130-400); Platelet Morphology Comment Appears Decreased; RBC Distribution Width 12.3 % (11.5-14.5); Red Blood Cell (RBC) Count 3.19 mill/uL (4.70-6.10); White Blood Cell (WBC) Count 13.2 thou/uL (4.8-10.8)
[2020-04-09 21:42] LABS: INR-International Normal Ratio 1.7; PTT 35.8 sec (22.9-36.1); Prothrombin Time 20.3 sec (12.0-14.7)
--- NOTE | 2020-04-09 21:43 | RAD ---
Portable frontal chest radiograph: 04/09/2020 COMPARISON: 04/09/2020 HISTORY: Donor patient FINDINGS: Stable endotracheal tube and nasogastric tube. No pneumothorax, pleural fluid, lobar consolidation, or alveolar edema. IMPRESSION: Stable appearance of the chest.
[2020-04-09 21:59] LABS: AST (SGOT) 3444 U/L (5-34); Albumin 3.8 g/dL (3.5-5.0); Alkaline Phosphatase 103 U/L (40-110); Anion Gap 17 mmol/L (10-20); BUN (Urea Nitrogen) 54 mg/dL (8.9-20.6); Calc. Creatinine Clearance 26 mL/min (70-130); Calcium 8.7 mg/dL (7.8-10.44); Carbon Dioxide 25 mmol/L (22-29); Chloride 116 mmol/L (98-107); Estimated GFR-MDRD 19; Globulin 2.2 g/dL (2.4-3.5); Glucose 168 mg/dL (70-105); Magnesium 2.4 mg/dL (1.6-2.6); Phosphorus 5.1 mg/dL (2.3-4.7); Potassium 3.6 mmol/L (3.5-5.1); Sodium 154 mmol/L (136-145)
[2020-04-09 22:07] LABS: Troponin I 1.909 ng/mL (< 0.028)
[2020-04-09 22:12] LABS: ALT (SGPT) 3991 U/L (8-55)
[2020-04-09 22:25] LABS: CK (CPK) 38835 U/L (30-200)
[2020-04-09 23:25] LABS: Actual Bicarbonate (HCO3a) 22.7 mEq/L (22-28); Base Excess (BEa) -2.8 mEq/L (-2.0 to +3.0); CO2 Tension 41.8 mmHg (35.0-45.0); Calcium, Ionized (arterial) 1.16 mmol/L (1.12-1.30); Carboxyhemoglobin (COHb) 0.2 gm% (0.0-3.0); Hemoglobin (Hb) 10.9 g/dL (14.0-18.0); Potassium - ABG Lab 3.25 mmol/L (3.70-5.30); pH, Arterial 7.35 (7.35-7.45)
[2020-04-09 23:26] LABS: O2 Tension (PaO2), arterial 550.5 mmHg (80.0-100.0)
[2020-04-09 23:27] LABS: Puncture Site A-LINE
[2020-04-10] MEDS: Albuterol Sulfate 2.5 mg/3 ml Neb NEB SCH (02:06)
[2020-04-10 02:09] VITALS: BP 142/83
[2020-04-10] MEDS: Piperacillin/Tazobactam 3.375 GM in Sodium Chloride 0.9% 100 ML IVPB SCH (02:24)
[2020-04-10] MEDS: Sodium Chloride 0.45% 1,000 ML IV SCH (02:25)
[2020-04-10 03:49] LABS: Actual Bicarbonate (HCO3a) 25.7 mEq/L (22-28); Base Excess (BEa) 0.8 mEq/L (-2.0 to +3.0); CO2 Tension 42.3 mmHg (35.0-45.0); Calcium, Ionized (arterial) 1.16 mmol/L (1.12-1.30); Carboxyhemoglobin (COHb) 0.1 gm% (0.0-3.0); Hemoglobin (Hb) 10.8 g/dL (14.0-18.0); Potassium - ABG Lab 3.18 mmol/L (3.70-5.30)
[2020-04-10 03:50] LABS: ALV-art Gradient 69.725 mmHg (0-20); O2 Tension (PaO2), arterial 590.4 mmHg (80.0-100.0); Puncture Site A-LINE
[2020-04-10 04:40] VITALS: TEMP 98.4
[2020-04-10 04:52] LABS: INR-International Normal Ratio 1.7; PTT 36.7 sec (22.9-36.1)
[2020-04-10 05:20] LABS: AST (SGOT) 2796 U/L (5-34); Albumin 3.6 g/dL (3.5-5.0); Alkaline Phosphatase 106 U/L (40-110); Anion Gap 17 mmol/L (10-20); BUN (Urea Nitrogen) 59 mg/dL (8.9-20.6); Bilirubin, Total 0.9 mg/dL (0.2-1.2); Calc. Creatinine Clearance 25 mL/min (70-130); Carbon Dioxide 26 mmol/L (22-29); Chloride 117 mmol/L (98-107); Estimated GFR-MDRD 17; Globulin 2.3 g/dL (2.4-3.5); Glucose 162 mg/dL (70-105); Magnesium 2.5 mg/dL (1.6-2.6); Phosphorus 5.1 mg/dL (2.3-4.7); Potassium 3.3 mmol/L (3.5-5.1); Protein, Total 5.9 g/dL (6.0-8.3); Sodium 157 mmol/L (136-145)
[2020-04-10] MEDS: Hydrocortisone Sod Succ/PF 100 mg/2 ml Vial IVP SCH (05:23)
[2020-04-10 05:28] LABS: Critical Call Chem Troponin I RESULT DECREASING; Troponin I 1.639 ng/mL (< 0.028)
[2020-04-10 05:35] LABS: ALT (SGPT) 3877 U/L (8-55); Lipase 1191 U/L (8-78)
[2020-04-10 05:50] LABS: CK (CPK) 27626 U/L (30-200)
[2020-04-10 06:07] LABS: Band 4 % (5-11); Hemoglobin 10.2 g/dL (14.0-18.0); Lymphocytes 4 % (21-51); MDiff Complete? YES; Mean Corpuscular HGB CONC 32.7 g/dL (32.0-36.0); Mean Corpuscular Hemoglobin 31.1 pg (27.0-31.0); Mean Corpuscular Volume 95.1 fL (78.0-98.0); Mean Platelet Volume 9.6 fL (7.4-10.4); Metamyelocyte 1 % (0-0); Monocytes 4 % (0-10); Neutrophil 87 % (42-75); Platelet Count 66 thou/uL (130-400); Platelet Morphology Comment Appears Decreased; RBC Distribution Width 12.2 % (11.5-14.5); RBC Morphology Normal; Red Blood Cell (RBC) Count 3.28 mill/uL (4.70-6.10); White Blood Cell (WBC) Count 13.4 thou/uL (4.8-10.8)
[2020-04-10] MEDS ORDERED: Rocuronium Bromide 50 MG/5 ML VIAL ONE (06:36)
[2020-04-10] MEDS ORDERED: Albumin 5% 250 ML ONE (08:46)
--- NOTE | 2020-04-10 12:17 | RAD ---
PORTABLE CHEST: DATE: 04/10/2020. PROVIDED CLINICAL HISTORY: Organ donor. FINDINGS: Comparison 04/09/2020. Cardiac and mediastinal silhouette are unchanged in appearance. Endotracheal tube and enteric catheter are redemonstrated in similar position. No focal consolidation, pleural f luid, or pneumothorax apparent. IMPRESSION: Stable radiographic appearance of the chest. POS: JANES
[2020-04-10 18:22] LABS: Cardiolipin IgA Ab 7.6 APL-U/mL (<14 Negative); Cardiolipin IgG Ab 0.9 GPL-U/mL (<10 Negative); Cardiolipin IgM Ab Less than 0.8 MPL-U/mL (<10 Negative); EliA APS New Method **** NEW METHOD ****
[2020-04-12 10:57] LABS: Factor VIII Test 261.3 % ACTIVE (56-157); Protein C Activity 36 % (78-152)
[2020-04-12 11:28] LABS: HEX PHOS LA Tube 1 49.5 SEC; HEX PHOS LA Tube 2 41.2 SEC; Hexagonal Phospholipid Neut 8.3 SEC (0-8.0)
== END 2020-04-10 11:49 | disposition expired ==
LOC: SDC 11:08 → CCU 11:08 → SDC 04-10 11:49
DX: Z52.4 Kidney donor (principal); Z52.6 Liver donor; Z52.89 Donor of other specified organs or tissues; J81.1 Chronic pulmonary edema
CPT/HCPCS: 31624; 36415; 36430; 71045; 71250; 74177; 80053; 80307; 81001; 81240; 81241; 82150; 82248; 82550; 82805; 82977; 83036; 83090; 83605; 83615; 83690; 83735; 84100; 84484; 85025; 85240; 85300; 85303; 85305; 85307; 85379; 85384; 85598; 85610; 85730; 86147; 86850; 86900; 86901; 87205; 93005; 93010; 93306; 94002; 94003; 94667; 94668; J1720; J1940; J2150; J2543; J3370; J3430; J3480; J3490; J7050; J7070; J7611; P9012; P9035; P9045; P9047; P9059